=== PATIENT | female | born 1945 | race Caucasian/White ===

== ENCOUNTER 2016-11-07 09:49 | Inpatient (IN) | payer MEDICARE, OTHER ==
[~2016-11-07] VITALS: Ht 152.4 cm; Wt 60.3 kg
[~2016-11-07 09:49] MED LIST: AMIT25TA PO; BUPR150T20 PO; BUPR75TA5 PO; BUPR75TA6 PO; CYAN25007 PO; DIAZ2TAB3 PO; ESTR0.5T PO; HYDR-3240 PO; LEVO500T33 PO; PROP10TA PO; SUMA25TA3 PO; SUMA6PEN SC; TIZA2CAP PO
[2016-11-07] MEDS ORDERED: AMIT150T PO (10:29)
[2016-11-07] MEDS ORDERED: SODIUM CHLORIDE FLUSH 10ML SYR IVF ONE (11:30)
[2016-11-07 11:42] LABS: PATH.CAST-FLAG NOT PRESENT; SPERM-FLAG NOT PRESENT; SRC-FLAG NOT PRESENT; XTAL-FLAG NOT PRESENT; YLC-FLAG NOT PRESENT
[2016-11-07 12:11] LABS: ASPARTATE AMINO TRANSFERASE 17 U/L (15-37); BLOOD UREA NITROGEN 20 mg/dL (7-18)
[2016-11-07 12:18] LABS: IS PT STATUS REG ER OR PRE ER? YES
[2016-11-07] MEDS ORDERED: BACITRACIN ZINC OINT 500U/GM, 0.9 GM ONE (12:48)
[2016-11-07] MEDS ORDERED: MORPHINE SULFATE 4 MG/ML, 1ML IVPush PRN (14:30)
[2016-11-07] MEDS ORDERED: ACETAMINOPHEN 325 MG TABLET PO PRN (14:30)
[2016-11-07] MEDS ORDERED: BISACODYL 10 MG SUPP PR PRN (14:30)
[2016-11-07] MEDS ORDERED: DOCUSATE 100 MG CAPSULE PO PRN (14:30)
[2016-11-07] MEDS ORDERED: POLYETHYLENE GLYCOL 17 GM PACKET PO PRN (14:30)
[2016-11-07] MEDS ORDERED: ENOXAPARIN 40 MG/0.4 ML SQ SCH (14:30)
[2016-11-07] MEDS ORDERED: ONDANSETRON 2MG/ML, 2ML IVPush PRN (14:30)
[2016-11-07] MEDS ORDERED: LABETALOL 5MG/ML 40ML VIAL IVPush PRN (14:30)
[2016-11-07 15:39] VITALS: BP 110/74
[2016-11-07] MEDS: NS + 20MEQ KCL 1,000 ML IV SCH (17:24)
[2016-11-07 19:31] VITALS: BP 127/80
[2016-11-07] MEDS: BUPROPION 75 MG TABLET PO SCH (22:07)
[2016-11-07] MEDS: AMITRIPTYLINE 100 MG TABLET PO SCH (22:07)
[2016-11-07] MEDS: ENOXAPARIN 40 MG/0.4 ML SQ SCH (22:08)
[2016-11-07] MEDS: HYDROcodone/APAP 5/325 TABLET PO PRN (22:30)
[2016-11-08 01:18] VITALS: BP 96/63
[2016-11-08] MEDS: NS + 20MEQ KCL 1,000 ML IV SCH (03:34)
[2016-11-08 05:36] LABS: BLOOD UREA NITROGEN 14 mg/dL (7-18)
[2016-11-08 07:04] VITALS: BP 116/75
[2016-11-08] MEDS: ESTRADIOL 1 MG TABLET PO SCH (08:21)
[2016-11-08] MEDS: BUPROPION 75 MG TABLET PO SCH ×2 (08:22→20:45)
[2016-11-08 13:52] VITALS: BP 114/70
[2016-11-08 19:04] VITALS: BP 121/77
[2016-11-08] MEDS: ENOXAPARIN 40 MG/0.4 ML SQ SCH (20:44)
[2016-11-08] MEDS: AMITRIPTYLINE 100 MG TABLET PO SCH (20:44)
[2016-11-08] MEDS: HYDROcodone/APAP 5/325 TABLET PO PRN (21:50)
[2016-11-09 02:26] VITALS: BP 100/66
[2016-11-09 07:02] VITALS: BP 134/79
[2016-11-09] MEDS: ESTRADIOL 1 MG TABLET PO SCH (07:55)
[2016-11-09] MEDS: BUPROPION 75 MG TABLET PO SCH ×2 (07:55→20:29)
[2016-11-09] MEDS: HYDROcodone/APAP 5/325 TABLET PO PRN ×2 (10:33→17:33)
[2016-11-09] MEDS: AMOXICILLIN/CLAV 875-125MG TABLET PO SCH ×2 (10:33→20:29)
[2016-11-09] MEDS ORDERED: NICOTINE 7 MG/24 HR PATCH.TD24 TD SCH (11:30)
[2016-11-09 12:48] VITALS: BP 134/76
[2016-11-09 19:12] VITALS: BP 127/76
[2016-11-09] MEDS: AMITRIPTYLINE 100 MG TABLET PO SCH (20:29)
[2016-11-09] MEDS: ENOXAPARIN 40 MG/0.4 ML SQ SCH (20:31)
[2016-11-09] MEDS ORDERED: TRAZODONE 50MG TABLET PO PRN (21:30)
[2016-11-09] MEDS: HALOPERIDOL 5 MG/ML IM PRN (21:58)
[2016-11-10 01:35] VITALS: BP 140/82
[2016-11-10] MEDS: HALOPERIDOL 5 MG/ML IM PRN (04:45)
[2016-11-10 05:47] LABS: BLOOD UREA NITROGEN 17 mg/dL (7-18)
[2016-11-10 07:16] VITALS: BP 139/73
[2016-11-10] MEDS: BUPROPION 75 MG TABLET PO SCH (07:52)
[2016-11-10] MEDS: AMOXICILLIN/CLAV 875-125MG TABLET PO SCH (07:52)
[2016-11-10] MEDS: ESTRADIOL 1 MG TABLET PO SCH (07:52)
[2016-11-10] MEDS ORDERED: AMOX1TAB12 PO (08:26)
== END 2016-11-10 11:30 | disposition home or self-care (01) | DRG 689 ==
LOC: ED 12:24 → EDIP 14:15 → 3NE 15:22
PROVIDERS: ADMIT Internal Medicine; ATTEND Internal Medicine
DX: N39.0 Urinary tract infection, site not specified (principal); G93.40 Encephalopathy, unspecified; F01.51 Vascular dementia, unspecified severity, with behavioral disturbance; D72.829 Elevated white blood cell count, unspecified; F17.200 Nicotine dependence, unspecified, uncomplicated; G35 Multiple sclerosis; I10 Essential (primary) hypertension; F32.9 Major depressive disorder, single episode, unspecified; G43.909 Migraine, unspecified, not intractable, without status migrainosus; Z82.3 Family history of stroke; Z90.49 Acquired absence of other specified parts of digestive tract
CPT/HCPCS: 36415; 70450; 71010; 80048; 80053; 81001; 82607; 82746; 84443; 84484; 85025; 87086; 93005; 99285; J1650; J3480; J1630